=== PATIENT | male | born 1940 | race Caucasian/White ===

== ENCOUNTER 2018-08-15 06:45 | Day surgery (SDC) | payer MEDICARE ==
[~2018-08-15] VITALS: Ht 166.6 cm; Wt 79.9 kg
[2018-08-15 07:42] VITALS: BP 177/72
[2018-08-15] MEDS ORDERED: SODIUM CHLORIDE 0.9% 1,000 ML IV SCH (07:45)
[2018-08-15] MEDS ORDERED: RIVA20TA PO (07:51)
[2018-08-15] MEDS ORDERED: LOSA100T14 PO (07:51)
[2018-08-15] MEDS ORDERED: AMLO10TA8 PO (07:51)
[2018-08-15] MEDS ORDERED: CARV-39 PO (07:51)
[2018-08-15] MEDS ORDERED: [UNRECOGNIZED DRUG - OTHER] PO (07:51)
[2018-08-15] MEDS ORDERED: FURO20TA3 PO (07:51)
[2018-08-15] MEDS ORDERED: INSU300I SQ-INSULIN (07:51)
[2018-08-15] MEDS ORDERED: LIDOCAINE-MPF 1%, 5ML ONE (07:55)
== END 2018-08-15 09:40 | disposition home or self-care (01) ==
LOC: OUT 06:45
PROVIDERS: ATTEND Nurse Practitioner Primary Care
DX: Z45.2 Encounter for adjustment and management of vascular access device (principal); E11.22 Type 2 diabetes mellitus with diabetic chronic kidney disease; I12.0 Hypertensive chronic kidney disease with stage 5 chronic kidney disease or end stage renal disease; N18.6 End stage renal disease; E03.9 Hypothyroidism, unspecified; J44.9 Chronic obstructive pulmonary disease, unspecified; Z95.1 Presence of aortocoronary bypass graft; Z87.891 Personal history of nicotine dependence; Z88.8 Allergy status to other drugs, medicaments and biological substances; Z79.84 Long term (current) use of oral hypoglycemic drugs
CPT/HCPCS: 36589; 77001; 82962; 99156; 99157; J7030

== ENCOUNTER 2020-11-30 08:42 | Day surgery (SDC) | payer MEDICARE ==
[~2020-11-30] VITALS: Ht 167.6 cm; Wt 79.9 kg
[~2020-11-30 08:42] MED LIST: ACETAMINOPHEN 325 MG TABLET PO PRN; AMLO-211 PO; ASPI81TA45 PO; CARV-39 PO; EPHEDRINE 50 MG/ML, 1ML IVPush PRN; FENTANYL PF 100 MCG/2ML IV PRN; FURO20TA3 PO; INSU300I SQ-INSULIN; LABETALOL 5MG/ML, 20ML IV PRN; LISI-167 PO; LOSA100T14 PO; ONDANSETRON 2MG/ML, 2ML IVPush PRN; PROMETHAZINE 25 MG/ML, 1ML IVPush PRN; RIVA20TA PO; TAMS-11 PO; [UNRECOGNIZED DRUG - OTHER] PO; hydrALAzine 20 MG/ML, 1ML IV PRN
[2020-11-30 09:50] VITALS: BP 168/77
[2020-11-30] MEDS ORDERED: PROPOFOL 50 ML ONE (09:57)
[2020-11-30] MEDS ORDERED: CHLORHEXIDINE 15 ML UDC PO ONE (10:00)
[2020-11-30] MEDS ORDERED: LACTATED RINGERS 1,000 ML IV SCH (10:00)
[2020-11-30] MEDS ORDERED: EPHEDRINE 50 MG/ML, 1ML ONE (10:26)
== END 2020-11-30 12:33 | disposition home or self-care (01) ==
LOC: OUT 08:42
PROVIDERS: ATTEND Internal Medicine Gastroenterology
DX: K51.90 Ulcerative colitis, unspecified, without complications (principal); D12.2 Benign neoplasm of ascending colon; K63.89 Other specified diseases of intestine; J44.9 Chronic obstructive pulmonary disease, unspecified; E11.9 Type 2 diabetes mellitus without complications; I10 Essential (primary) hypertension; I25.10 Atherosclerotic heart disease of native coronary artery without angina pectoris; E78.5 Hyperlipidemia, unspecified; Z88.8 Allergy status to other drugs, medicaments and biological substances; Z79.899 Other long term (current) drug therapy; Z20.822 Contact with and (suspected) exposure to COVID-19; Z79.4 Long term (current) use of insulin
CPT/HCPCS: 45380; 45385; 82962; 87635; 88305; 93005; J2704; J7120

== ENCOUNTER 2020-11-30 12:58 | Emergency (ER) | payer MEDICARE ==
[~2020-11-30 12:58] MED LIST changes: -ACETAMINOPHEN 325 MG TABLET PO PRN; -EPHEDRINE 50 MG/ML, 1ML IVPush PRN; -FENTANYL PF 100 MCG/2ML IV PRN; -LABETALOL 5MG/ML, 20ML IV PRN; -ONDANSETRON 2MG/ML, 2ML IVPush PRN; -PROMETHAZINE 25 MG/ML, 1ML IVPush PRN; -hydrALAzine 20 MG/ML, 1ML IV PRN
[2020-11-30 13:04] VITALS: BP 165/78
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
== END 2020-11-30 13:45 | disposition home or self-care (01) ==
LOC: ED 13:35
DX: S09.90XA Unspecified injury of head, initial encounter (principal); E11.9 Type 2 diabetes mellitus without complications; I25.2 Old myocardial infarction; I50.9 Heart failure, unspecified; W18.00XA Striking against unspecified object with subsequent fall, initial encounter; Y93.89 Activity, other specified; Y92.239 Unspecified place in hospital as the place of occurrence of the external cause; Y99.8 Other external cause status
CPT/HCPCS: 88305; 99282